=== PATIENT | female | born 1985 | race African-American/Black ===

== ENCOUNTER 2022-03-13 19:00 | Emergency (ER) | payer MEDICAID ==
[~2022-03-13] VITALS: Ht 160 cm; Wt 73.5 kg
[2022-03-13 19:53] VITALS: BP 121/52
[2022-03-14] MEDS ORDERED: IBUP-2029 PO (06:02)
[2022-03-14] MEDS ORDERED: SULF1TAB48 PO (06:02)
[2022-03-14] MEDS ORDERED: AMOX1TAB16 PO (06:02)
== END 2022-03-14 03:10 | disposition left against medical advice (07) ==
LOC: ER 19:00
DX: Z53.21 Procedure and treatment not carried out due to patient leaving prior to being seen by health care provider (principal)

== ENCOUNTER 2022-03-14 04:48 | Emergency (ER) | payer MEDICAID ==
[~2022-03-14] VITALS: Ht 160 cm; Wt 73.2 kg
[2022-03-14 05:07] VITALS: BP 132/76
[2022-03-14] MEDS ORDERED: KETOROLAC 60MG/2ML VIAL IM STA (05:07)
[2022-03-14] MEDS ORDERED: AMOXICILLIN/POTASSIUM CLAVULANATE 875/125MG TAB PO STA (05:07)
[2022-03-14] MEDS ORDERED: SULF1TAB48 PO (06:02)
[2022-03-14] MEDS ORDERED: IBUP-2029 PO (06:02)
[2022-03-14] MEDS ORDERED: AMOX1TAB16 PO (06:02)
== END 2022-03-14 06:12 | disposition home or self-care (01) ==
LOC: ER 04:48
DX: K04.7 Periapical abscess without sinus (principal); L03.211 Cellulitis of face; Z88.6 Allergy status to analgesic agent
CPT/HCPCS: 96372; 99283; J1885

== ENCOUNTER 2024-11-29 00:56 | Emergency (ER) | payer SELFPAY ==
[~2024-11-29] VITALS: Ht 167.6 cm; Wt 72.0 kg
[~2024-11-29 00:56] MED LIST: AMOX1TAB16 PO; IBUP-2029 PO; SULF1TAB48 PO
[2024-11-29 00:57] VITALS: BP 134/74; PULSE 100; RESP 16; TEMP 36.9; O2SAT 100
[2024-11-29] MEDS: ACETAMINOPHEN 500MG TABLET PO ONE (01:51)
== END 2024-11-29 02:39 | disposition home or self-care (01) ==
LOC: ER 01:01
DX: S00.83XA Contusion of other part of head, initial encounter (principal); S09.90XA Unspecified injury of head, initial encounter; Z88.5 Allergy status to narcotic agent; Z88.6 Allergy status to analgesic agent; Y04.0XXA Assault by unarmed brawl or fight, initial encounter; Y93.89 Activity, other specified; Y92.89 Other specified places as the place of occurrence of the external cause; Y99.8 Other external cause status
CPT/HCPCS: 70486; 81025; 99284